=== PATIENT | male | born 1980 | race Caucasian/White ===

== ENCOUNTER 2020-07-06 13:01 | Emergency (ER) | payer BC, OTHER ==
[2020-07-06 13:10] VITALS: BP 132/75; PULSE 83; RESP 18; TEMP 98.3
[2020-07-06] MEDS ORDERED: BACITRACIN ZINC 500 UNIT/GM OINT 28.4 GM TUBE TOPICAL ONE (13:18)
[2020-07-06] MEDS ORDERED: IBUPROFEN 600 MG STARTER PACK 4 TAB BTL PO STA (13:20)
--- NOTE | 2020-07-06 13:22 | ED ---
Burn/Smoke HPI - General Chief complaint: Burn/Smoke Inhalation Stated complaint: L Hand Burn Time Seen by Provider: 07/06/20 13:11 Source: patient, RN notes reviewed Mode of arrival: ambulatory Limitations: no limitations - History of Present Illness Initial comments: 39-year-old male presented from chief complaint of burn to his left hand. His tetanus is up-to-date. Patient was at work and states he went to check to break states that his hand actually touched the break causing blistering and burn.. Patient States That He Has a Burn to His Second and Third Digit Patient's Full Range Of Motion Pain Is [id number] Improving. - Related Data Previous Rx's Medication Instructions Recorded Ibuprofen [Motrin] 600 mg PO Q8HR PRN #20 tab 07/06/20 Allergies Allergy/AdvReac Type Severity Reaction Status Date / Time No Known Allergies Allergy Verified 07/06/20 13:10 Review of Systems ROS Statement: Those systems with pertinent positive or pertinent negative responses have been documented in the HPI. ROS Other: All systems not noted in ROS Statement are negative. 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 Absent: respiratory distress, wheezes, rales, rhonchi, stridor Cardiovascular Exam: Present: regular rate, normal rhythm, normal heart sounds. Absent: systolic murmur, diastolic murmur, rubs, gallop, clicks Extremities exam: Present: other (Left hand there is blistering noted on the second digit distal tip, third digit from the distal tip to the proximal finger which is not circumferential and does not cover the complete more surface) Course Vital Signs 07/06/20 13:06 Temperature 98.3 F Pulse Rate 83 Respiratory 18 Rate Blood Pressure 132/75 O2 Sat by Pulse 98 Oximetry Medical Decision Making - Medical Decision Making 39-year-old presented for secondary burn. His tetanus up-to-date patient was given bacitracin and ibuprofen wound care instructions given return parameters were given Disposition Clinical Impression: Burn of hand, left, second degree Disposition: HOME SELF-CARE Condition: Stable Instructions (If sedation given, give patient instructions): Second Degree Burn (ED) Additional Instructions: Please return to the Emergency Department if symptoms worsen or any other concerns. Prescriptions: Ibuprofen [Motrin] 600 mg PO Q8HR PRN #20 tab PRN Reason: Pain Is patient prescribed a controlled substance at d/c from ED?: No Referrals: Dariel Chamberlain [Primary Care Provider] - 1-2 days Time of Disposition: 13:21
== END 2020-07-06 13:57 | disposition home or self-care (01) ==
LOC: EC 13:01
DX: T23.232A Burn of second degree of multiple left fingers (nail), not including thumb, initial encounter (principal); F17.200 Nicotine dependence, unspecified, uncomplicated; T31.0 Burns involving less than 10% of body surface; X19.XXXA Contact with other heat and hot substances, initial encounter; Y92.69 Other specified industrial and construction area as the place of occurrence of the external cause; Y99.0 Civilian activity done for income or pay
CPT/HCPCS: 99283

== ENCOUNTER 2025-01-18 04:19 | Emergency (ER) | payer BC, OTHER ==
[2025-01-18 04:27] VITALS: RESP 18; TEMP 98.8
--- NOTE | 2025-01-18 04:40 | ED ---
General Adult HPI - General Chief complaint: Abdominal Pain Stated complaint: Abd pain Time Seen by Provider: 01/18/25 04:34 Source: patient Mode of arrival: ambulatory - History of Present Illness Initial comments: Dictation was produced using Embedded Chat dictation software. please excuse any grammatical, word or spelling errors. Chief Complaint: 44-year-old male presents with left flank pain History of Present Illness: Patient is a 44-year-old male he has a past medical history of nephrectomy as a teenager presents to the ER today for couple hours of left-sided flank pain. States that he initially had pain last night however went away and it came back while he was sleeping. Denies any fever. He does report some associated nausea. No diarrhea no history of diverticulitis. Patient states that the pain stays in 1 spot does not radiate to his groin. No numbness tingling paresthesias to the lower extremities. The ROS documented in this emergency department record has been reviewed and confirmed by me. Those systems with pertinent positive or negative responses have been documented in the HPI. All other systems are other negative and/or noncontributory. - Related Data Previous Rx's Medication Instructions Recorded Ibuprofen [Motrin] 600 mg PO Q8HR PRN #20 tab 07/06/20 Allergies Allergy/AdvReac Type Severity Reaction Status Date / Time No Known Allergies Allergy Verified 01/18/25 04:27 Review of Systems ROS Statement: Those systems with pertinent positive or pertinent negative responses have been documented in the HPI. ROS Other: All systems not noted in ROS Statement are negative. 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 Cardiovascular: Heart regular rate and rhythm Chest: Able to complete full sentences, no retractions, no tachypnea Abdomen: abdomen soft, non-tender, non-distended, no organomegaly Musculoskeletal: Pulses present and equal in all extremities, no peripheral edema Motor: no focal deficits noted Neurological: CN II-XII grossly intact, no focal motor or sensory deficits noted Skin: Intact with no visualized rashes Psych: Normal affect and mood Course Vital Signs 01/18/25 04:24 Temperature 98.8 F Pulse Rate 65 Respiratory 18 Rate Blood Pressure 136/85 O2 Sat by Pulse 98 Oximetry EKG Findings - EKG Comments: EKG Findings:: My EKG interpretation: Ventricular rate 62, sinus rhythm, [place] 10/28/1987, QRS 102, QTc 408. No [place] prolongation, no QTC prolongation, no ST or T- wave changes noted. Overall, this EKG is unremarkable Medical Decision Making - Medical Decision Making Was pt. sent in by a medical professional or institution (, PA, [employer], urgent care, hospital, or assisted...) When possible be specific @ -No Did you speak to anyone other than the patient for history (EMS, parent, family, police, friend...)? What history was obtained from this source @ -No Did you review nursing and triage notes (agree or disagree)? Why? @ -I reviewed and agree with nursing and triage notes Were old charts reviewed (outside hosp., previous admission, EMS record, old EKG, old radiological studies, urgent care reports/EKG's, assisted records)? Report findings @ -No old charts were reviewed Differential Diagnosis (chest pain, altered mental status, abdominal pain women, abdominal pain men, vaginal bleeding, musculoskeletal, weakness, fever, dyspnea, syncope, headache, dizziness, GI bleed, back pain, seizure, CVA, palpatations, mental health)? @ -Differential Abdominal Pain Men: Appendicitis, cholecystitis, diverticulosis, ischemic bowel, pancreatitis, hepatitis, UTI, gastroenteritis, AAA, incarcerated hernia, bowel obstruction, constipation, inflammatory bowel, hepatitis, peptic ulcer disease, splenic infarction, perforated viscus, testicular torsion, this is not meant to be an all-inclusive list EKG interpreted by me (3pts min.). @ -None done X-rays interpreted by me (1pt min.). @ -None done CT interpreted by me (1pt min.). @ -CT shows small 1 mm punctate nonobstructing calculus U/S interpreted by me (1pt. min.). @ -None done What testing was considered but not performed or refused? (CT, X-rays, U/S, labs)? Why? @ -None What meds were considered but not given or refused? Why? @ -None Was smoking cessation discussed for >3mins.? @ -No Were there social determinants of health that impacted care today? How? (Homelessness, low income, unemployed, alcoholism, drug addiction, transportation, low edu. Level, literacy, decrease access to med. care, long term, rehab)? @ -No Was there de-escalation of care discussed even if they declined (Discuss DNR or withdrawal of care, Hospice)? DNR status @ -No What co-morbidities impacted this encounter? (DM, HTN, Smoking, COPD, CAD, Cancer, CVA, ARF, Chemo, Hep., AIDS, mental health diagnosis, sleep apnea, morbid obesity)? @ -1 kidney Was patient admitted / discharged? Hospital course, mention meds given and route , prescriptions, significant lab abnormalities, going to OR and other pertinent info. @ -44-year-old male presents to the emergency department with left flank/left abdominal pain. Vital signs stable. Patient abdomen is soft. Laboratory evaluation is unremarkable. CT scan shows no acute processes. Patient reevaluated bedside 6:53 AM. Patient be discharged advised follow-up with primary care doctor. Did you discuss the management of the patient with other professionals (professionals i.e. , PA, [employer], lab, RT, psych nurse, administrator social welfare, mortuary operations manager, teacher, national service officer, case management social worker)? Give summary @ -No Was critical care preformed (if so, how long)? @ -No Undiagnosed new problem with uncertain prognosis? @ -No Drug Therapy requiring intensive monitoring for toxicity (Heparin, Nitro, Insulin, Cardizem)? @ -No Were any procedures done? @ -No Diagnosis/symptom? Acute, or Chronic, or Acute on Chronic? Uncomplicated (without systemic symptoms) or Complicated (systemic symptoms)? @ -Abdominal pain, no high risk features Side effects of treatment? @ -No Exacerbation, Progression, or Severe Exacerbation? @ -No Poses a threat to life or bodily function? How? (Chest pain, [place], ND, pneumonia, PE, COPD, DKA, ARF, appy, cholecystitis, CVA, Diverticulitis, Homicidal, Suicidal, threat to staff... and all critical care pts) @ -No - Lab Data Result diagrams: 01/18/25 04:59 01/18/25 04:59 Lab Results 01/18/25 01/18/25 01/18/25 Range/Units 04:45 04:59 04:59 WBC 8.8 (3.8-10.6) k/uL RBC 5.25 (4.30-5.90) m/uL Hgb 17.0 (13.0-17.5) gm/dL Hct 49.6 (39.0-53.0) % MCV 94.5 (80.0-100.0) fL MCH 32.4 (25.0-35.0) pg MCHC 34.3 (31.0-37.0) g/dL RDW 12.0 (11.5-15.5) % Plt Count 194 (150-450) k/uL MPV 7.6 Neutrophils % 71 % Lymphocytes % 17 % Monocytes % 7 % Eosinophils % 3 % Basophils % 1 % Neutrophils # 6.2 (1.3-7.7) k/uL Lymphocytes # 1.5 (1.0-4.8) k/uL Monocytes # 0.6 (0-1.0) k/uL Eosinophils # 0.2 (0-0.7) k/uL Basophils # 0.1 (0-0.2) k/uL Sodium 135 L (137-145) mmol/L Potassium 4.2 (3.5-5.1) mmol/L Chloride 107 (98-107) mmol/L Carbon Dioxide 23 (22-30) mmol/L Anion Gap 5 mmol/L BUN 13 (9-20) mg/dL Creatinine 0.77 (0.66-1.25) mg/dL Est GFR (CKD-EPI)AfAm >90 (>60 ml/min/1.73 sqM) Est GFR (CKD-EPI)NonAf >90 (>60 ml/min/1.73 sqM) Glucose 105 H (74-99) mg/dL Calcium 8.8 (8.4-10.2) mg/dL Total Bilirubin 0.6 (0.2-1.3) mg/dL AST 24 (17-59) U/L ALT 24 (4-49) U/L Alkaline Phosphatase 74 (38-126) U/L Total Protein 6.5 (6.3-8.2) g/dL Albumin 3.9 (3.5-5.0) g/dL Lipase 102 (23-300) U/L Urine Color Colorless Urine Appearance Clear (Clear) Urine pH 5.5 (5.0-8.0) Ur Specific [place] 1.009 (1.001-1.035) Urine Protein Negative (Negative) Urine Glucose (UA) Negative (Negative) Urine Ketones Negative (Negative) Urine Blood Negative (Negative) Urine Nitrite Negative (Negative) Urine Bilirubin Negative (Negative) Urine Urobilinogen <2.0 (<2.0) mg/dL Ur Leukocyte Esterase Negative (Negative) Disposition Clinical Impression: Abdominal pain Disposition: HOME SELF-CARE Condition: Good Instructions (If sedation given, give patient instructions): Abdominal Pain (ED) Is patient prescribed a controlled substance at d/c from ED?: No Referrals: None,Stated [Primary Care Provider] - 1-2 days Time of Disposition: 06:53
[2025-01-18 05:12] LABS: Appearance,Urine Clear (Clear); Bilirubin,Urine Negative (Negative); Blood,Urine Negative (Negative); Color,Urine Colorless; Glucose,Urine (UA) Negative (Negative); Ketones,Urine Negative (Negative); Leukocyte Esterase,Urine Negative (Negative); Nitrite,Urine Negative (Negative); PH, Urine 5.5 (5.0-8.0); Protein,Urine Negative (Negative); Specific Gravity,Urine 1.009 (1.001-1.035); Urobilinogen,Urine <2.0 mg/dL (<2.0)
[2025-01-18 05:14] LABS: Basophils # (A) 0.1 k/uL (0-0.2); Basophils % (A) 1 %; Eosinophils # (A) 0.2 k/uL (0-0.7); Eosinophils % (A) 3 %; HCT 49.6 % (39.0-53.0); Lymphocytes # (A) 1.5 k/uL (1.0-4.8); Lymphocytes % (A) 17 %; MCH 32.4 pg (25.0-35.0); MCHC 34.3 g/dL (31.0-37.0); MCV 94.5 fL (80.0-100.0); Mean Platelet Volume 7.6; Monocytes # (A) 0.6 k/uL (0-1.0); Monocytes % (A) 7 %; Neutrophils # (A) 6.2 k/uL (1.3-7.7); Neutrophils % (A) 71 %; Platelet Count 194 k/uL (150-450); RBC 5.25 m/uL (4.30-5.90); WBC 8.8 k/uL (3.8-10.6)
[2025-01-18 05:36] LABS: ALT 24 U/L (4-49); AST 24 U/L (17-59); African American GFR (CKD) >90 (>60 ml/min/1.73 sqM); Albumin 3.9 g/dL (3.5-5.0); Alkaline Phosphatase 74 U/L (38-126); Anion Gap 5 mmol/L; Blood Urea Nitrogen 13 mg/dL (9-20); Calcium 8.8 mg/dL (8.4-10.2); Carbon Dioxide 23 mmol/L (22-30); Chloride 107 mmol/L (98-107); Glucose 105 mg/dL (74-99); Lipase 102 U/L (23-300); Non-African American GFR(CKD) >90 (>60 ml/min/1.73 sqM); Potassium 4.2 mmol/L (3.5-5.1); Sodium 135 mmol/L (137-145); Total Bilirubin 0.6 mg/dL (0.2-1.3); Total Protein 6.5 g/dL (6.3-8.2)
--- NOTE | 2025-01-18 06:35 | CT ---
EXAMINATION TYPE: CT abdomen pelvis wo con DATE OF EXAM: 01/18/2025 COMPARISON: NONE CLINICAL INDICATION: Male, 44 years old with history of left flank pain, Pt abdominal pain LUQ radiat ed down to LLQ aching stabbing pain since 0200, nausea without emesis, and denies urinary changes/bow el changes., TECHNIQUE: CT scan of the abdomen and pelvis is performed without IV contrast, patient injected with mL of ., (n one if empty) Oral contrast used: without Oral Contrast (none if empty) CT DLP: 1446.9 mGycm, Automated exposure control for dose reduction was used. FINDINGS: LUNG BASES: Mild left basilar linear scarring and/or atelectasis. Incidental 4 mm right middle lobe p ulmonary nodule axial image 8. LIVER/GB: The liver is heterogeneously hypodense consistent with diffuse fatty infiltration of the. PANCREAS: No significant abnormality is seen. SPLEEN: No significant abnormality is seen. ADRENALS: No significant abnormality is seen. 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 Possible 1 mm nonobstructing calculus in the left kidney lower level coronal image 70. No hydronephrosis or obstructing left ureteral calculus . No intraluminal calculus in the bladder. BOWEL: Appendix within normal limits from cecum. PROSTATE/SEMINAL VESICLES: No gross abnormality seen. LYMPH NODES: No greater than 1cm abdominal or pelvic lymph nodes are appreciated. OSSEOUS STRUCTURES: Moderate disc space narrowing with vacuum disc phenomenon at the L3-L4 level. OTHER: No significant additional abnormality is seen. IMPRESSION: Single left kidney has possible 1 mm punctate nonobstructing calculus. No hydronephrosis or obstructing ureter calculus is seen. No acute finding on noncontrast CT to account for patient's s ymptoms. [facility], , 01/18/2025 6:33 AM
[2025-01-18 07:07] VITALS: BP 133/88; PULSE 67
== END 2025-01-18 07:06 | disposition home or self-care (01) ==
LOC: EC 04:19
DX: R10.32 Left lower quadrant pain (principal); F17.200 Nicotine dependence, unspecified, uncomplicated
CPT/HCPCS: 36415; 74176; 80053; 81003; 83690; 85025; 93005; 99284